=== PATIENT | male | born 1955 | race Caucasian/White ===

== ENCOUNTER 2018-10-04 10:45 | Emergency (ER) | payer OTHER ==
[~2018-10-04] VITALS: Ht 177.8 cm; Wt 111.1 kg
[2018-10-04 10:47] VITALS: BP 151/92
== END 2018-10-04 11:14 | disposition home or self-care (01) ==
LOC: ER 10:45
DX: K64.4 Residual hemorrhoidal skin tags (principal); E78.5 Hyperlipidemia, unspecified; Z60.2 Problems related to living alone